=== PATIENT | male | born 1990 | race Caucasian/White ===

== ENCOUNTER 2016-12-13 07:02 | Emergency (ER) | payer OTHER ==
[~2016-12-13] VITALS: Ht 177.8 cm; Wt 63.5 kg
[2016-12-13] MEDS ORDERED: SODIUM CHLORIDE 0.9% 1,000 ML IV ONE (07:28)
[2016-12-13] MEDS ORDERED: PROMETHAZINE HCL 25 MG/ML 1ML IV ONE (07:30)
[2016-12-13] MEDS ORDERED: NALBUPHINE HCL 10 MG/1ml INJECTION IV ONE ×2 (07:30→10:45)
[2016-12-13 07:41] VITALS: BP 126/76
[2016-12-13] MEDS ORDERED: NALBUPHINE HCL 10 MG/1ml INJECTION ONE (10:05)
== END 2016-12-13 10:55 | disposition home or self-care (01) ==
LOC: EDBD 07:02 → ER 07:07
DX: S80.12XA Contusion of left lower leg, initial encounter (principal); S99.922A Unspecified injury of left foot, initial encounter; V03.10XA Pedestrian on foot injured in collision with car, pick-up truck or van in traffic accident, initial encounter; Y93.89 Activity, other specified; Y99.8 Other external cause status; Y92.410 Unspecified street and highway as the place of occurrence of the external cause
CPT/HCPCS: 73590; 73630; 96361; 96374; 96375; 96376; 99284; J2300; J2550; J7030